=== PATIENT | male | born 1970 | race Two or more races ===

== ENCOUNTER 2022-07-20 12:42 | Emergency (ER) | payer OTHER ==
[~2022-07-20] VITALS: Ht 167.6 cm; Wt 99.8 kg
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
--- NOTE | 2022-07-20 14:28 | NUR ---
PT TAKEN TO CT [facility]IA [facility]
[2022-07-20] MEDS ORDERED: METHOCARBAMOL (500MG) 500 MG TABLET PO ONE (14:30)
[2022-07-20] MEDS ORDERED: KETOROLAC TROMETHAMINE INJ 60 MG/2 ML VIAL IM ONE ×2 (14:30→14:37)
[2022-07-20] MEDS ORDERED: METHOCARBAMOL (500MG) 500 MG TABLET ONE (14:37)
--- NOTE | 2022-07-20 14:44 | NUR ---
PT RETURNED FROM CT [facility]IA [facility]
[2022-07-20] MEDS ORDERED: METH-647 PO (16:35)
[2022-07-20] MEDS ORDERED: IBUP-1953 PO (16:35)
[2022-07-20 16:42] VITALS: BP 134/90
== END 2022-07-20 16:42 | disposition home or self-care (01) ==
LOC: ER 12:49
DX: M62.838 Other muscle spasm (principal); M54.12 Radiculopathy, cervical region
CPT/HCPCS: 99285; 72125; 96372; J1885